=== PATIENT | male | born 1985 | race Caucasian/White ===

== ENCOUNTER 2017-12-16 09:28 | Emergency (ER) | payer SELFPAY ==
[~2017-12-16] VITALS: Ht 175.3 cm; Wt 127.0 kg
[2017-12-16 09:28] VITALS: BP_SYST 152
[2017-12-16 10:55] VITALS: BP_SYST 158
== END 2017-12-16 10:53 | disposition home or self-care (01) ==
LOC: SED 09:28
DX: L73.2 Hidradenitis suppurativa (principal); R61 Generalized hyperhidrosis; F12.10 Cannabis abuse, uncomplicated
CPT/HCPCS: 99283

== ENCOUNTER 2022-10-25 20:01 | Emergency (ER) | payer SELFPAY ==
[~2022-10-25] VITALS: Ht 172.7 cm; Wt 99.8 kg
[2022-10-25 20:16] VITALS: BP_SYST 116
--- NOTE | 2022-10-25 20:20 | NUR ---
Placed in room 08 . Placed on manager cardiac cath, blood pressure machine and pulse oximeter. To gown for exam. Side rails up.
--- NOTE | 2022-10-25 20:25 | NUR ---
patient brought in with mother complaining of hyperglycemia of 375. patient is a known diabetic who takes metformin 500 mg bid but did not take medication today. patient reports having cold sweats and being lethargic. took metformin 1000mg prior to arrival . glucose is 318. aox4 slow to respond, vital signs stable. denies any pain
--- NOTE | 2022-10-25 20:38 | NUR ---
# 18 gauge angiocath placed to rac. Use of asceptic technique. Opsite placed over site. Blood return noted. Blood for lab drawn from site. Flushed with 10 cc of normal saline. No evidence of infiltration noted. Patient tolerated well.
[2022-10-25 20:49] LABS: BASOPHILS # (AUTO) 0.1 K/uL (0.0-0.2); BASOPHILS % (AUTO) 0.8 % (0.0-2.0); EOSINOPHILS # (AUTO) 0.1 K/uL (0.0-0.4); EOSINOPHILS % (AUTO) 0.8 % (0.0-4.0); HEMATOCRIT 43.1 % (36-54); HEMOGLOBIN 14.4 g/dL (14.0-18.0); LYMPHOCYTES # (AUTO) 3.1 K/uL (1.0-5.5); LYMPHOCYTES % (AUTO) 31.4 % (20.5-51.5); MEAN CORPUSCULAR HEMOGLOBIN 27 pg (27-31); MEAN CORPUSCULAR HGB CONC 33 % (32-36); MEAN CORPUSCULAR VOLUME 80 fL (79.0-98.0); MONOCYTES # (AUTO) 0.5 K/uL (0.0-1.0); MONOCYTES % (AUTO) 5.3 % (1.7-9.3); NEUTROPHILS # (AUTO) 6.2 K/uL (1.8-7.7); NEUTROPHILS % (AUTO) 61.7 % (40.0-70.0); PLATELET COUNT (AUTO) 224 K/uL (130-430); RED BLOOD CELL COUNT(AUTO) 5.36 MIL/uL (4.2-6.2); RED CELL DISTRIBUTION WIDTH 14.5 % (9.0-15.0)
--- NOTE | 2022-10-25 20:52 | NUR ---
patient off unit for ct scan
--- NOTE | 2022-10-25 20:55 | NUR ---
patient returned from radiology in stable condition
[2022-10-25 21:02] LABS: ANION GAP 3 (5-15); CALCIUM 8.8 mg/dL (8.4-11.0); CHLORIDE 97 mmol/L (98-107); GLUCOSE 281 mg/dL (70-99); UREA NITROGEN, BLOOD 10 mg/dL (8-21)
[2022-10-25 21:06] LABS: ALANINE AMINOTRANSFERASE 40 U/L (12-78); ALBUMIN 3.3 g/dL (3.4-4.8); AMYLASE 63 U/L (0-100); ASPARTATE AMINOTRANSFERASE 9 U/L (10-37); GFR AFRICAN AMERICAN 122 mL/min (>90); LIPASE 85 U/L (73-393); TOTAL BILIRUBIN 0.5 mg/dL (0.0-1.0)
[2022-10-25 21:14] LABS: ACETONE, SERUM SMALL (NEGATIVE)
[2022-10-25 21:56] VITALS: BP_SYST 105
--- NOTE | 2022-10-25 21:56 | NUR ---
Patient given written and verbal discharge instructions and verbalizes understanding. ER MD discussed with patient the results and treatment provided. Patient in stable condition. ID arm band removed. IV catheter removed intact and dressing applied, no active bleeding. Patient educated on pain management and to follow up with PMD. Pain Scale 0/10 Opportunity for questions provided and answered.
== END 2022-10-25 21:56 | disposition home or self-care (01) ==
LOC: SED 20:01
DX: E11.65 Type 2 diabetes mellitus with hyperglycemia (principal); I10 Essential (primary) hypertension; Z79.899 Other long term (current) drug therapy
CPT/HCPCS: 36415; 71045; 80053; 82009; 82150; 83605; 83690; 85025; 99284